=== PATIENT | female | born 1965 | race African-American/Black ===

== ENCOUNTER 2022-10-31 08:33 | Emergency (ER) | payer MEDICAID ==
[~2022-10-31] VITALS: Ht 170.2 cm; Wt 95.3 kg
[2022-10-31] MEDS ORDERED: HYDROCODONE/ACETAMINOPHEN 5/325MG TABLET PO ONE (09:45)
[2022-10-31] MEDS ORDERED: LIDOCAINE HCL/PF 1% 10 MG/ML 5ML VIAL INFIL ONE (09:45)
[2022-10-31] MEDS ORDERED: BACITRACIN ZINC OINT UDPKT TOP ONE (09:45)
[2022-10-31] MEDS ORDERED: LIDOCAINE 5% PATCH TOP SCH (09:45)
[2022-10-31] MEDS ORDERED: TETANUS, DIPHTHERIA, PERTUSSIS VAC/PF 0.5ML (>10YR OLD) IM ONE (09:45)
[2022-10-31 10:08] VITALS: BP 146/84
[2022-10-31] MEDS ORDERED: IBUP-2029 MT (10:42)
[2022-10-31] MEDS ORDERED: BACL20TA MT (10:42)
== END 2022-10-31 11:27 | disposition home or self-care (01) ==
LOC: ER 08:33
DX: R07.89 Other chest pain (principal); S01.511A Laceration without foreign body of lip, initial encounter; S80.02XA Contusion of left knee, initial encounter; I10 Essential (primary) hypertension; E11.9 Type 2 diabetes mellitus without complications; Z88.0 Allergy status to penicillin; V49.9XXA Car occupant (driver) (passenger) injured in unspecified traffic accident, initial encounter; Y93.89 Activity, other specified; Y92.89 Other specified places as the place of occurrence of the external cause; Y99.8 Other external cause status
CPT/HCPCS: 12011; 71045; 73562; 90471; 90715; 99284; J3490

== ENCOUNTER 2022-11-07 09:39 | Emergency (ER) | payer MEDICAID ==
[~2022-11-07] VITALS: Ht 162.6 cm; Wt 102.0 kg
[~2022-11-07 09:39] MED LIST: BACL20TA MT; IBUP-2029 MT
[2022-11-07 09:46] VITALS: BP 174/111
== END 2022-11-07 11:56 | disposition home or self-care (01) ==
LOC: ER 09:39
DX: Z48.02 Encounter for removal of sutures (principal); I10 Essential (primary) hypertension; E11.9 Type 2 diabetes mellitus without complications; Z88.0 Allergy status to penicillin; Z90.49 Acquired absence of other specified parts of digestive tract
CPT/HCPCS: 99281

== ENCOUNTER 2023-02-18 10:20 | Emergency (ER) | payer MEDICAID, OTHER ==
[~2023-02-18] VITALS: Ht 162.6 cm; Wt 95.0 kg
[2023-02-18 10:28] VITALS: BP 214/97
== END 2023-02-18 10:46 ==
LOC: ER 10:20
DX: Z02.89 Encounter for other administrative examinations (principal); E11.9 Type 2 diabetes mellitus without complications; I11.9 Hypertensive heart disease without heart failure; Z88.0 Allergy status to penicillin; Z90.89 Acquired absence of other organs
CPT/HCPCS: 99283

== ENCOUNTER 2024-09-11 11:55 | Emergency (ER) | payer MEDICAID, OTHER ==
[~2024-09-11] VITALS: Ht 259.1 cm; Wt 105.0 kg
[2024-09-11 12:02] VITALS: O2SAT 97
[2024-09-11 12:14] LABS: BASOPHILS % 1.3 % (0.0-2.0); EOSINOPHILS % 2.7 % (0.0-5.0); HEMOGLOBIN. 13.2 g/dL (12.0-16.0); LYMPHOCYTES % 31.7 % (20.0-50.0); MEAN CORPUSCULAR HEMOGLOBIN 29.6 pg (28.0-32.0); MEAN CORPUSCULAR HGB CONC 32.1 g/dL (31.0-37.0); MEAN CORPUSCULAR VOLUME 92.4 fL (81.0-99.0); MEAN PLATELET VOLUME 9.5 fl (7.4-10.4); MONOCYTES % 7.8 % (2.0-8.0); NEUTROPHILS % 56.5 % (40.0-76.0); PLATELET 241 x1000/uL (130-400); RED BLOOD CELL COUNT 4.44 mill/uL (4.2-5.4); RED CELL DISTRIBUTION WIDTH 15.3 % (11.6-14.6)
[2024-09-11 12:19] LABS: POTASSIUM 4.1 mEq/L (3.5-5.1)
[2024-09-11 12:25] LABS: CREATININE 1.3 mg/dL (0.6-1.0)
[2024-09-11 12:27] LABS: BETA HYDROXYBUTYRATE 0.5 mMol/L (0.0-0.3)
[2024-09-11] MEDS ORDERED: SODIUM CHLORIDE 0.9% 100 ML IV NR (12:45)
[2024-09-11 12:48] LABS: ALANINE AMINOTRANSFERASE 12 IU/L (10-49); ASPARTATE AMINOTRANSFERASE 13 IU/L (<34)
[2024-09-11 12:49] LABS: BILIRUBIN TOTAL 0.3 mg/dL (0.1-1.0); PROTEIN TOTAL 7.4 g/dL (6.0-8.3)
[2024-09-11 12:57] LABS: BILIRUBIN DIRECT < 0.1 mg/dL (<=3.0)
[2024-09-11 13:39] LABS: CLARITY URINE CLEAR (CLEAR); COLOR URINE YELLOW (YELLOW); GLUCOSE URINE 3+ (NEGATIVE); KETONES URINE TRACE (NEGATIVE); LEUKOCYTE ESTERASE URINE NEGATIVE (NEGATIVE); NITRITE URINE POSITIVE (NEGATIVE); OCCULT BLOOD URINE NEGATIVE (NEGATIVE); PH URINE 6.5 (4.5-8.0); PROTEIN URINE NEGATIVE (NEGATIVE); SPECIFIC GRAVITY URINE 1.038 (1.005-1.030); UROBILINOGEN URINE 0.2 E.U./dL (0.2-1.0)
[2024-09-11 13:54] LABS: BACTERIA URINE 3+; RBC URINE 0-2 /hpf (0-2); SQUAMOUS EPITHELIAL CELL URINE 1+ /lpf (RARE/1+); YEAST URINE 1+
[2024-09-11] MEDS ORDERED: DEXTROSE 50% WATER 50ML SYRINGE IV PRN (14:00)
[2024-09-11 15:16] VITALS: BP 159/101; PULSE 85; RESP 16; TEMP 36.83628; O2SAT 97
[2024-09-11] MEDS ORDERED: NEED-122 SQ (15:28)
[2024-09-11] MEDS ORDERED: NITR100C MT (15:28)
[2024-09-11] MEDS: INSULIN LISPRO 100 UNITS/ML SUBCUT STA (15:52)
[2024-09-11] MEDS ORDERED: BLOOD SUGAR DIAGNOSTIC STRIP TEST SCH (16:00)
[2024-09-11] MEDS ORDERED: INSULIN LISPRO 100 UNITS/ML SUBCUT SCH (16:00)
== END 2024-09-11 16:00 | disposition home or self-care (01) ==
LOC: ER 11:55
DX: E11.65 Type 2 diabetes mellitus with hyperglycemia (principal); I10 Essential (primary) hypertension; Z88.0 Allergy status to penicillin
CPT/HCPCS: 99284; 71045; 80076; 80048; 81003; 82010; 82962; 85025; 87086; 36415; 96372; J1815